=== PATIENT | male | born 1980 | race Hispanic/Latino ===

== ENCOUNTER 2018-06-21 14:23 | Emergency (ER) | payer SELFPAY ==
[2018-06-21] MEDS ORDERED: FLUORESCEIN SODIUM 0.6 MG STRIP ONE (14:50)
[2018-06-21] MEDS ORDERED: TETRACAINE HCL 0.5% 4 ML OPHTH SOLN ONE (14:50)
[2018-06-21] MEDS ORDERED: NA BORATE/BORIC AC/H2O/NACL 120 ML OPHTH IRRIG SOLN ONE (14:50)
[2018-06-21] MEDS ORDERED: TETANUS/DIPHTHERIA TOXOID [ADULT] 0.5 ML VIAL IM ONE (14:51)
== END 2018-06-21 15:49 | disposition home or self-care (01) ==
LOC: EDH 14:23
DX: H10.9 Unspecified conjunctivitis (principal); L03.213 Periorbital cellulitis
CPT/HCPCS: 90714; 96372